=== PATIENT | male | born 2000 | race Caucasian/White ===

== ENCOUNTER 2019-10-10 15:11 | Emergency (ER) | payer BC ==
[~2019-10-10] VITALS: Ht 175.3 cm; Wt 74.8 kg
[2019-10-10 15:41] VITALS: Ht 175.3 cm; Wt 74.8 kg
[2019-10-10 15:48] LABS: BASOPHIL % 0.3 % (0-2); PLATELET COUNT 272 x10^3mcL (130-400); RED CELL DISTRIBUTION WIDTH 13.6 % (11.5-14.5)
[2019-10-10 15:59] LABS: CALCIUM 9.3 mg/dL (8.5-10.1); CARBON DIOXIDE 23.9 mmol/L (21-32); CHLORIDE SERUM 104 mmol/L (98-107); CREATININE SERUM 1.2 mg/dL (0.7-1.3); GFR1 > 60 mL/min; GLUCOSE SERUM 174 mg/dL (74-106); SODIUM SERUM 140 mmol/L (136-145)
[2019-10-10 16:03] LABS: ALBUMIN 4.2 g/dL (3.4-5.0); ALKALINE PHOSPHATASE 53 U/L (46-116); ALT/SGPT 22 U/L (16-63); AST/SGOT 18 U/L (15-37); BILIRUBIN TOTAL 0.7 mg/dL (0.20-1.00); MAGNESIUM 2.5 mg/dL (1.8-2.4); TOTAL PROTEIN, SERUM 7.7 g/dL (6.4-8.2)
[2019-10-10 16:56] LABS: AMPHETAMINE QUAL UR NONE DETECTED (See below)
[2019-10-10 17:29] VITALS: BP 121/75
== END 2019-10-10 17:29 | disposition home or self-care (01) ==
LOC: ED 15:11
PROVIDERS: Emergency Medicine
DX: E16.2 Hypoglycemia, unspecified (principal); R40.4 Transient alteration of awareness
CPT/HCPCS: 82962